=== PATIENT | male | born 1985 | race Caucasian/White ===

== ENCOUNTER 2020-10-16 11:06 | Emergency (ER) | payer OTHER ==
[2020-10-16 11:13] VITALS: BP 126/81; PULSE 78; RESP 18; TEMP 98.3
[2020-10-16 12:20] LABS: Basophils # (A) 0.1 k/uL (0-0.2); Basophils % (A) 1 %; Eosinophils # (A) 0.1 k/uL (0-0.7); Eosinophils % (A) 1 %; HCT 45.5 % (39.0-53.0); HGB 16.4 gm/dL (13.0-17.5); Lymphocytes # (A) 1.5 k/uL (1.0-4.8); Lymphocytes % (A) 19 %; MCH 30.6 pg (25.0-35.0); MCHC 36.1 g/dL (31.0-37.0); MCV 84.8 fL (80.0-100.0); Mean Platelet Volume 9.1; Monocytes # (A) 0.4 k/uL (0-1.0); Monocytes % (A) 5 %; Neutrophils # (A) 5.8 k/uL (1.3-7.7); Neutrophils % (A) 74 %; Platelet Count 179 k/uL (150-450); RBC 5.36 m/uL (4.30-5.90); RDW 12.5 % (11.5-15.5); WBC 7.9 k/uL (3.8-10.6)
[2020-10-16 12:31] LABS: ALT 53 U/L (4-49); AST 43 U/L (17-59); African American GFR (CKD) >90 (>60 ml/min/1.73 sqM); Albumin 5.2 g/dL (3.5-5.0); Alkaline Phosphatase 66 U/L (38-126); Anion Gap 12 mmol/L; Blood Urea Nitrogen 16 mg/dL (9-20); Carbon Dioxide 26 mmol/L (22-30); Chloride 104 mmol/L (98-107); Glucose 99 mg/dL (74-99); Non-African American GFR(CKD) >90 (>60 ml/min/1.73 sqM); Potassium 4.4 mmol/L (3.5-5.1); Sodium 142 mmol/L (137-145); Total Protein 8.1 g/dL (6.3-8.2)
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
== END 2020-10-16 12:56 | disposition home or self-care (01) ==
LOC: EC 11:06
DX: M54.5 Low back pain (principal); F17.200 Nicotine dependence, unspecified, uncomplicated; V89.2XXA Person injured in unspecified motor-vehicle accident, traffic, initial encounter; Y92.410 Unspecified street and highway as the place of occurrence of the external cause
CPT/HCPCS: 36415; 80053; 85025; 71260; 74177; 99283; Q9967